=== PATIENT | female | born 1970 | race Caucasian/White ===

== ENCOUNTER 2018-04-17 16:42 | Day surgery (SDC) | payer BC, OTHER ==
[2018-04-17 17:17] VITALS: BMI 26.6
[2018-04-17] MEDS ORDERED: Propofol 10 mg/ml Inj (20 ML) ONE (19:01)
[2018-04-17] MEDS ORDERED: Vancomycin 1gm in NS 250ml IVPB ONE (19:10)
[2018-04-17] MEDS ORDERED: Bupivacaine 0.5% Inj(30mL) IJ ONE (19:12)
[2018-04-17] MEDS ORDERED: Lactated Ringer's 1,000 ML IV SCH (19:15)
[2018-04-17] MEDS: HYDROmorphone 0.5 mg/0.5 ml ISec ONE ×2 (19:35→19:50)
[2018-04-17] MEDS ORDERED: DiphenhydrAMINE 50 mg/ml Inj IVP PRN ×2 (19:39→19:42)
[2018-04-17] MEDS ORDERED: DiphenhydrAMINE 50 mg/ml Inj ONE (19:40)
[2018-04-17] MEDS ORDERED: HYDROmorphone 0.5 mg/0.5 ml ISec IVP PRN (19:42)
[2018-04-17] MEDS ORDERED: HYDROmorphone 0.5 mg/0.5 ml ISec ONE (19:52)
[2018-04-17 21:40] VITALS: BP 123/70; PULSE 54; RESP 20; TEMP 97.4; O2SAT 96
--- NOTE | 2018-04-25 23:33 | OP ---
PROCEDURE DATE: 04/17/2018 PREOPERATIVE DIAGNOSES: Three methicillin-resistant Staphylococcus aureus abscesses. The first is right buttock, second is right labia, and third is infrapubic area. POSTOPERATIVE DIAGNOSES: Three methicillin-resistant Staphylococcus aureus abscesses. The first is right buttock, second is right labia, and third is infrapubic area. PROCEDURE PERFORMED: Incision and drainage with packing of abscesses. SURGEON: Neel Zelaya MD TYPE OF ANESTHESIA: General mask. ESTIMATED BLOOD LOSS: Minimal. CULTURES: Taken. DESCRIPTION OF PROCEDURE: After a long discussion was held with the patient as an outpatient, has been on Bactrim therapy and has a recurrence of these abscesses, the patient was brought into the operating room after consent was signed. The patient was prepped and draped in usual sterile fashion. When general mask anesthesia was given, the smallest of abscesses which was in the right labia majora area noted, small incision was made with a #15 blade, pus was expressed. Using a small Q-tip, the sac of the area was squeezed and cleaned with Betadine. Attention was then brought up to the infrapubic area where the patient had a 2 x 3 cm abscess. Again incision was made horizontally over this abscess, pus was expressed from this area. Blunt dissection was carried down into the abscess site. Prior to that cultures were taken and sent to pathology for examination. This area was irrigated out well and then packed with 0.5-inch packing. Attention was then turned to the patient's right buttock where the patient had an abscess that was approximately 4 x 4 cm in size. Again, an incision was made directly over the abscess. Cultures were taken of this abscess. Finger was placed into this abscess to break up all possible loculations. The area was irrigated thoroughly and then packed with 0.5-inch packing. Sterile dressings were applied to this area. As of note, the patient was given vancomycin intravenously during the procedure. The patient tolerated the procedure well and went to the recovery room in stable condition. Neel Zelaya MD
== END 2018-04-17 21:43 | disposition home or self-care (01) ==
LOC: SDS 16:42 → OR 16:42 → 5RNO 21:00 → SDS 21:43
PROVIDERS: ATTEND Obstetrics & Gynecology Gynecology
DX: L02.31 Cutaneous abscess of buttock (principal); B95.62 Methicillin resistant Staphylococcus aureus infection as the cause of diseases classified elsewhere
CPT/HCPCS: 10060; 87070; 87181; J1170; J1200; J7120 ×2